=== PATIENT | female | born 1940 | race Hispanic/Latino ===

== ENCOUNTER 2022-02-25 12:08 | Emergency (ER) | payer SELFPAY ==
[2022-02-25] MEDS ORDERED: SODIUM CHLORIDE 0.9% 1000 ML 1,000 ML IV ONE (14:03)
[2022-02-25] MEDS ORDERED: ONDANSETRON 4 MG/2 ML INJ IV ONE (14:03)
[2022-02-25] MEDS ORDERED: MORPHINE 4 MG/1 ML INJ IV ONE ×2 (14:03→20:09)
--- NOTE | 2022-02-25 14:06 | Emergency Department Report ---
<ANUPAMA SCHMITZ - Last Filed: 02/25/22 14:17> ED Abdominal Pain HPI - General Chief Complaint: Abdominal Pain Stated Complaint: LOW ABD PAIN Time Seen by Provider: 02/25/22 14:02 Source: patient, EMS Mode of arrival: Stretcher Limitations: Physical Limitation - History of Present Illness Initial Comments: 81-year-old female brought in with diffuse abdominal discomfort has been going on for couple of days progressively getting worse. Patient denies any fever or chills. Patient mentions some nausea without emesis. Patient could not remember the last bowel movement. Unsure if this patient has dementia. No oth er modifying or associated factors reported. - Related Data Allergies Allergy/AdvReac Type Severity Reaction Status Date / Time No Known Allergies Allergy Verified 02/25/22 12:20 ED Review of Systems Comment: All other systems reviewed and negative Gastrointestinal: abdominal pain, nausea, constipation. denies: vomiting ED Past Medical Hx - Past Medical History Previous Medical History?: Yes Hx Hypertension: Yes Hx Diabetes: Yes - Social History Smoking Status: Never Smoker Substance Use Type: None ED Physical Exam - General Limitations: Physical Limitation - Head Head exam: Present: normal inspection - Eye Eye exam: Present: normal appearance Pupils: Present: normal accommodation - ENT ENT exam: Present: normal exam, normal orophraynx, mucous membranes dry - Neck Neck exam: Present: normal inspection - Respiratory Respiratory exam: Present: normal lung sounds bilaterally. Absent: respiratory distress, accessory muscle use - Cardiovascular Cardiovascular Exam: Present: regular rate, normal rhythm, normal heart sounds - GI/Abdominal GI/Abdominal exam: Present: soft, tenderness (Mildly diffuse tenderness to palpation no rebound or guarding), normal bowel sounds. Absent: distended, guarding, rebound - Extremities Exam Extremities exam: Present: normal inspection, pedal edema (Mild bilateral +1 pitting edema). Absent: tenderness - Back Exam Back exam: Absent: tenderness - Neurological Exam Neurological exam: Present: alert, oriented X3 - Psychiatric Psychiatric exam: Present: normal affect, normal mood - Skin Skin exam: Present: warm, normal color ED Course - Reevaluation(s) Reevaluation #1: 02/25/22 14:[address] Morocho while waiting for labs and imaging ED Medical Decision Making - Medical Decision Making Here with abdominal pain--this could likely be constipation considering that t his patient could not remember the last BM but differential could not be limited to appendicitis, diverticulitis, cholecystitis, cholelithiasis, nephrolithiasis, gastritis, pancreatitis, duodenitis, colitis, irritable bowel syndrome, cystitis, so in order to rule this out we will go ahead and order routine acute abdomen that include CBC, CMP, urinalysis, and CT imaging of the abdomen/pelvic. ED Disposition Clinical Impression: Sciatica Abdominal pain Qualifiers: Abdominal location: generalized Qualified Code(s): R10.84 - Generalized abdominal pain Disposition: 01 HOME / SELF CARE / HOMELESS Does the pt Need Aspirin: No Condition: Stable Instructions: Abdominal Pain (ED), Radicular Pain, Abdominal Pain, Adult, Abdominal Pain, Adult, [id number] Time of Disposition: 14:21 <SANFORD MOROCHO - Last Filed: 02/25/22 20:12> ED Abdominal Pain HPI - General PUI?: No ED Review of Systems ROS: Stated complaint: LOW ABD PAIN Other details as noted in HPI ED Course Vital Signs 02/25/22 02/25/22 02/25/22 12:18 13:08 13:10 Temperature 97.7 F Pulse Rate 72 72 Respiratory 18 17 15 Rate Blood Pressure Blood Pressure 177/94 [Left] O2 Sat by Pulse 98 97 100 Oximetry 02/25/22 02/25/22 02/25/22 13:15 13:31 13:57 Temperature Pulse Rate 72 73 79 Respiratory 19 22 22 Rate Blood Pressure 164/106 167/103 163/97 Blood Pressure [Left] O2 Sat by Pulse 99 96 100 Oximetry 02/25/22 02/25/22 02/25/22 14:01 14:15 14:31 Temperature Pulse Rate 72 71 72 Respiratory 22 17 16 Rate Blood Pressure 163/97 160/99 167/104 Blood Pressure [Left] O2 Sat by Pulse 98 97 99 Oximetry 02/25/22 02/25/22 02/25/22 14:45 15:01 15:15 Temperature Pulse Rate 70 71 71 Respiratory 20 13 12 Rate Blood Pressure 175/105 162/96 169/92 Blood Pressure [Left] O2 Sat by Pulse 97 96 94 Oximetry 02/25/22 02/25/22 02/25/22 15:31 15:45 16:01 Temperature Pulse Rate 72 70 70 Respiratory 15 14 12 Rate Blood Pressure 162/98 158/94 166/98 Blood Pressure [Left] O2 Sat by Pulse 96 99 96 Oximetry 02/25/22 02/25/22 02/25/22 16:15 16:31 16:45 Temperature Pulse Rate 71 71 70 Respiratory 15 17 18 Rate Blood Pressure 168/93 168/98 156/91 Blood Pressure [Left] O2 Sat by Pulse 98 92 94 Oximetry 02/25/22 02/25/22 17:01 17:15 Temperature Pulse Rate 68 68 Respiratory 32 H 26 H Rate Blood Pressure 149/83 152/83 Blood Pressure [Left] O2 Sat by Pulse 95 94 Oximetry ED Medical Decision Making - Lab Data Result diagrams: 02/25/22 15:31 02/25/22 15:31 - Radiology Data Radiology results: report reviewed, image reviewed - Medical Decision Making handed over to me at [address] scan results , kdiniey impairment noted , chronic ct done without contrast , negative , pain meds given clinically looks like sciatica Critical care attestation.: If time is entered above; I have spent that time in minutes in the direct care of this critically ill patient, excluding procedure time. ED Disposition Is pt being admited?: No Does the pt Need Aspirin: No
[2022-02-25 15:44] LABS: Bacteria,Urine 1+ /HPF (Negative); Hyaline Casts,Urine 21 /LPF; Mucus,Urine FEW /HPF
[2022-02-25 16:05] LABS: Bilirubin,Urine Negative (Negative); Blood,Urine Negative (Negative); Color,Urine Amber (Yellow)
[2022-02-25 16:06] LABS: INR 1.1 (0.87-1.13)
[2022-02-25 16:15] LABS: Basophils # (Auto) 0.1 K/mm3 (0.0-0.1); Basophils % (Auto) 1.2 % (0.0-1.8); Eosinophils # (Auto) 0.1 K/mm3 (0.0-0.4); Eosinophils % (Auto) 0.8 % (0.0-4.3); Lymphocytes # (Auto) 1.7 K/mm3 (1.2-5.4); Lymphocytes % (Auto) 26.3 % (13.4-35.0); Mean Corpuscular HGB Conc 31 % (30-34); Mean Corpuscular Volume 91 fl (79-97); Monocytes # (Auto) 0.8 K/mm3 (0.0-0.8); Monocytes % (Auto) 11.5 % (0.0-7.3); Platelet Count 213 K/mm3 (140-440); Red Blood Count 4.41 M/mm3 (3.65-5.03); Red Cell Distribution Width 17.1 % (13.2-15.2)
[2022-02-25 16:17] LABS: Hematocrit 40.1 % (30.3-42.9); Hemoglobin 12.4 gm/dl (10.1-14.3)
[2022-02-25 16:58] LABS: Albumin 3.7 g/dL (3.9-5); Bilirubin,Direct 1.1 mg/dL (0-0.2); Calcium 9.3 mg/dL (8.4-10.2)
[2022-02-25 17:21] VITALS: BP 152/83
--- NOTE | 2022-02-25 19:56 | Cat Scan Report ---
CT ABDOMEN AND PELVIS WITHOUT CONTRAST INDICATION / CLINICAL INFORMATION: pain. TECHNIQUE: Axial CT images were obtained through the abdomen and pelvis without IV contrast. All CT scans at this location are performed using CT dose reduction for ALARA by means of automated exposure control. COMPARISON: None available. FINDINGS: LOWER CHEST: There are small bilateral pleural effusions. The heart is enlarged. LIVER: No significant abnormality. GALLBLADDER: No significant abnormality. BILE DUCTS: No significant abnormality. PANCREAS: No significant abnormality. SPLEEN: No significant abnormality. ADRENALS: No significant abnormality. RIGHT KIDNEY / URETER: No significant abnormality. LEFT KIDNEY / URETER: No significant abnormality. STOMACH / SMALL BOWEL: No significant abnormality. COLON: No significant abnormality. APPENDIX: Not visualized. PERITONEUM: There is a small amount of free fluid in the pelvis there is a trace amount of free fluid adjacent to the liver and spleen. No free air. No fluid collection. LYMPH NODES: No significant adenopathy. AORTA / ARTERIES: No significant abnormality. IVC / VEINS: No significant abnormality. URINARY BLADDER: Contracted around a Murphy catheter. REPRODUCTIVE ORGANS: No significant abnormality. ADDITIONAL FINDINGS: There is subcutaneous edema. SKELETAL SYSTEM: No significant abnormality. IMPRESSION: 1. There is no obstruction, inflammation, or free air in the abdomen or pelvis. There are no abnormal fluid collections. 2. The heart is enlarged. There are small bilateral pleural effusions. There is subcutaneous edema. Signer Name: Shun Simms MD Signed: 02/25/2022 7:52 PM Workstation Name: [id number]
== END 2022-02-25 21:09 | disposition home or self-care (01) ==
LOC: ED 12:08
DX: M54.32 Sciatica, left side (principal); R10.32 Left lower quadrant pain; I10 Essential (primary) hypertension; E11.9 Type 2 diabetes mellitus without complications; Z79.899 Other long term (current) drug therapy
CPT/HCPCS: 36415; 74176; 80048; 80076; 81001; 83690; 85025; 85610; 96361; 96374; 96375; 96376; 99284; J2270; J2405; J7030